=== PATIENT | female | born 1990 | race Caucasian/White ===

== ENCOUNTER 2017-07-15 06:23 | Inpatient (IN) | payer BC ==
[2017-07-15] MEDS ORDERED: METHYLERGONOVINE 0.2 MG/ML 1 ML AMP IM PRN (06:37)
[2017-07-15] MEDS ORDERED: LIDOCAINE 1% (PF) 10 MG/ML (30 ML SDV) SQ PRN (06:37)
[2017-07-15] MEDS ORDERED: OXYTOCIN 10 UNIT/ML 1 ML VIAL IM PRN (06:37)
[2017-07-15] MEDS ORDERED: TERBUTALINE 1 MG/ML VIAL SQ PRN (06:37)
[2017-07-15] MEDS ORDERED: CARBOPROST TROMETHAMINE 250 MCG/ML 1 ML AMP IM PRN (06:37)
[2017-07-15] MEDS ORDERED: LACTATED RINGERS 1,000 ML IV SCH (06:45)
[2017-07-15 06:51] LABS: Basophils % (A) 0 %; Eosinophils # (A) 0.1 k/uL (0-0.7); Eosinophils % (A) 1 %; HCT 41.8 % (34.0-46.0); HGB 13.6 gm/dL (11.4-16.0); Lymphocytes # (A) 1.9 k/uL (1.0-4.8); Lymphocytes % (A) 17 %; MCH 29.2 pg (25.0-35.0); MCHC 32.6 g/dL (31.0-37.0); MCV 89.6 fL (80.0-100.0); Mean Platelet Volume 8.6; Monocytes # (A) 0.4 k/uL (0-1.0); Monocytes % (A) 4 %; Neutrophils # (A) 8.1 k/uL (1.3-7.7); Neutrophils % (A) 76 %; Platelet Count 261 k/uL (150-450); RBC 4.67 m/uL (3.80-5.40); RDW 13.3 % (11.5-15.5); WBC 10.7 k/uL (3.8-10.6)
[2017-07-15] MEDS ORDERED: OXYTOCIN 20 UNITS/1000 ML NS 1,000 ML IV SCH (07:45)
[2017-07-15 08:21] VITALS: BMI 23.0
[2017-07-15] MEDS ORDERED: diphenhydrAMINE 50 MG/ML 1 ML VIAL IVP PRN ×2 (08:27)
[2017-07-15] MEDS ORDERED: ZOLPIDEM 5 MG TAB PO PRN (08:27)
[2017-07-15] MEDS ORDERED: diphenhydrAMINE 50 MG CAP PO PRN (08:27)
[2017-07-15] MEDS ORDERED: BENZOCAINE/MENTHOL SPRAY 1 GM/SPRAY AEROSOL TOPICAL PRN (08:27)
[2017-07-15] MEDS ORDERED: ACETAMINOPHEN TAB 325 MG TAB PO PRN (08:27)
[2017-07-15] MEDS ORDERED: SIMETHICONE 80 MG CHEWABLE PO PRN (08:27)
[2017-07-15] MEDS ORDERED: LANOLIN CREAM 5 GM TUBE TOPICAL PRN (08:27)
[2017-07-15] MEDS ORDERED: WITCH HAZEL 1 EACH MED..PAD TOPICAL PRN (08:27)
[2017-07-15] MEDS ORDERED: HYDROCORTISONE 2.5% RECTAL CREAM 30 GM TUBE RECTAL PRN (08:27)
[2017-07-15] MEDS ORDERED: diphenhydrAMINE 25 MG CAP PO PRN (08:27)
--- NOTE | 2017-07-15 08:29 | P.HPOB ---
History of Present Illness H&P Date: 07/15/17 Chief Complaint: Intrauterine at term: Active labor Patient is a 27-year-old at 39 weeks gestation arise in active labor, dilated to complete at presentation. Artificial rupture membranes was performed short time later and clear fluid is noted. She denies any problems the and she is feeling well at this time pertinent lab does include O + blood type and negative group B strep status area assessment intrauterine at term. Plan expect spontaneous vaginal delivery Past Medical History Past Medical History: No Reported History, Vascular Disorder Additional Past Medical History / Comment(s): vericose veins History of Any Multi-Drug Resistant Organisms: None Reported Additional Past Surgical History / Comment(s): wisdom teeth Past Anesthesia/Blood Transfusion Reactions: No Reported Reaction Past Psychological History: No Psychological Hx Reported Smoking Status: Never smoker Past Alcohol Use History: None Reported Past Drug Use History: None Reported - Past Family History Father Family Medical History: Diabetes Mellitus Medications and Allergies Home Medications Medication Instructions Recorded Confirmed Type Vit No.124/Iron/Folic 1 each PO DAILY 08/10/14 10/30/15 History [ Vitamin Tablet] Acetaminophen-Codeine 300-30mg 1 tab PO Q4H PRN #30 tablet 10/31/15 Rx [Tylenol #3] Ibuprofen [Motrin] 600 mg PO Q6HR PRN #30 tab 10/31/15 Rx Allergies Allergy/AdvReac Type Severity Reaction Status Date / Time No Known Allergies Allergy Verified 10/30/15 02:31 Exam Osteopathic Statement: *. No significant issues noted on an osteopathic structural exam other than those noted in the History and Physical/Consult. - Vital Signs Vital signs: Vital Signs Temp Pulse Resp BP Pulse Ox 07/15/17 06:29 97.7 F 107 H 18 97/63 100 Intake and Output 07/14/17 07/15/17 07/15/17 22:59 06:59 14:59 Other: Weight 66.678 kg - OBG Physical Exam Breast: both: normal (no masses) Abdomen: bowel sounds normal, no diffuse tenderness, no bruit present, no guarding noted, no hepatomegaly, no splenomegaly, no mass Vulva: both: normal Vagina: Varicose pains Vagina: normal moisture, no discharge Cervix: no lesion, no discharge Uterus: normal size, normal contour Adnexa: both: normal Anus/Rectum: normal perianal skin, no rectal mass, no hemorrhoids, heme negative Varicose veins across bilateral legs Results Result Diagrams: 07/15/17 06:35 Abnormal Lab Results - Last 24 Hours (Table) 07/15/17 Range/Units 06:35 WBC 10.7 H (3.8-10.6) k/uL Neutrophils # 8.1 H (1.3-7.7) k/uL
--- NOTE | 2017-07-15 08:30 | P.PROBDLV ---
Vaginal Delivery Note - . Vaginal Delivery Note: Patient progressed to complete and pushing with spontaneous vaginal delivery of a viable female over an intact perineum. Falling deliver the head anterior posterior shoulders were easily delivered with essentially no traction. Baby was delivered from right occiput anterior position. Mouth nares were then bulb suctioned and baby was placed on mother's abdomen where the umbilical cord was allowed to pulsate for 30 seconds prior to clamping and cutting. Once this was accomplished nursery personnel was present and assumed care. Placenta was then delivered intact and Pitocin was added to the IV. scores were 8 and 9 at one and 5 minutes respectively however, the weight is pending. Both mother and baby are however stable.
[2017-07-15] MEDS: IBUPROFEN 600 MG TAB PO PRN ×3 (08:39→22:55)
[2017-07-15] MEDS: SENNOSIDES-DOCUSATE SODIUM 1 EACH TAB PO SCH (22:56)
--- NOTE | 2017-07-16 06:11 | P.PNOBGVD ---
Subjective - Subjective Patient reports: Reports appetite normal, Reports voiding normally, Reports pain well controlled, Reports ambulating normally : doing well Objective - Latest Vital Signs Latest vital signs: Vital Signs Temp Pulse Resp BP Pulse Ox 07/15/17 23:30 98.2 F 64 16 96/52 07/15/17 20:00 98.1 F 70 16 111/57 07/15/17 16:00 97.8 F 58 L 16 109/67 07/15/17 11:40 98.4 F 80 16 109/64 07/15/17 10:28 98.0 F 73 16 108/67 07/15/17 09:58 85 16 101/60 07/15/17 09:28 74 16 100/63 07/15/17 09:13 66 16 105/63 07/15/17 08:58 84 16 115/59 07/15/17 08:43 84 16 115/59 07/15/17 08:28 96.3 F L 95 16 149/60 07/15/17 06:29 97.7 F 107 H 18 97/63 100 Intake and Output 07/15/17 07/15/17 07/16/17 14:59 22:59 06:59 Other: # Voids 1 1 2 - Exam Lungs: bilateral: normal Chest: Normal S1, Normal S2 Extremities: Present: normal Abdomen: Present: normal appearance, soft Uterus: Present: normal, firm - Labs Labs: Abnormal Lab Results - Last 24 Hours (Table) 07/15/17 Range/Units 06:35 WBC 10.7 H (3.8-10.6) k/uL Neutrophils # 8.1 H (1.3-7.7) k/uL Assessment and Plan Assessment: Post day #1. Patient is resting without complaints wishes to go home. Vital signs are stable and she is afebrile. Uterus is firm nontender and she is having normal lochia. My impression this is a normal course. Plan is to continue routine care and discharge home later today. (1) Normal labor and delivery Current Visit: No Status: Acute Code(s): O80 - ENCOUNTER FOR FULL-TERM UNCOMPLICATED DELIVERY SNOMED Code(s): 94789832
--- NOTE | 2017-07-16 06:16 | P.DS ---
Providers Date of admission: 07/15/17 06:29 Expected date of discharge: 07/16/17 Attending physician: Rom Saeed - Discharge Diagnosis(es) (1) Normal labor and delivery Current Visit: No Status: Acute Hospital Course: Please see dictated H&P for intimate details of this patient's admission. Brief summary this is a pleasant 27-year-old 3 para 2 female 39-3/7 weeks gestation who is admitted to labor and delivery in active labor. Please see dictated admission history and physical. Patient quickly goes on to have a vaginal delivery viable female . Please see dictated delivery note per Dr. Lerma. day #1 patient is without complaints wishes to go home. Patient's felt to be stable for discharge home follow up with me in 6 weeks Procedures: Normal spontaneous vaginal delivery Patient Condition at Discharge: Good Plan - Discharge Summary New Discharge Prescriptions: New RX: Ibuprofen [Motrin] 600 mg PO Q6HR PRN #40 tab PRN Reason: Mild Pain Or Fever >= 100.5 No Action Vit No.124/Iron/Folic [ Vitamin Tablet] 1 each PO DAILY Ibuprofen [Motrin] 600 mg PO Q6HR PRN #30 tab PRN Reason: Pain Acetaminophen-Codeine 300-30mg [Tylenol #3] 1 tab PO Q4H PRN #30 tablet PRN Reason: Pain Discharge Medication List Vit No.124/Iron/Folic [ Vitamin Tablet] 1 each PO DAILY [History] Acetaminophen-Codeine 300-30mg [Tylenol #3] 1 tab PO Q4H PRN #30 tablet [Rx] Ibuprofen [Motrin] 600 mg PO Q6HR PRN #30 tab 10/31/15 [Rx] RX: Ibuprofen [Motrin] 600 mg PO Q6HR PRN #40 tab 07/16/17 [Rx] Follow up Appointment(s)/Referral(s): Rom Saeed MD [STAFF PHYSICIAN] - 6 Weeks Patient Instructions/Handouts: Vaginal Delivery (DC) Activity/Diet/Wound Care/Special Instructions: No intercourse or anything per vagina for 6 weeks. Please call if any fever, chills, excessive vaginal bleeding, and/or abdominal pain. Discharge Disposition: HOME SELF-CARE
[2017-07-16] MEDS: IBUPROFEN 600 MG TAB PO PRN (08:01)
[2017-07-16] MEDS: SENNOSIDES-DOCUSATE SODIUM 1 EACH TAB PO SCH (08:02)
[2017-07-16 08:46] VITALS: BP 111/66; PULSE 72; RESP 20; TEMP 97
== END 2017-07-16 10:30 | disposition home or self-care (01) | DRG 775 ==
LOC: FBPOP 06:23 → 4FBP 06:29
PROVIDERS: ADMIT Obstetrics & Gynecology; ATTEND Obstetrics & Gynecology
PROC: 10907ZC Drainage of Amniotic Fluid, Therapeutic from Products of Conception, Via Natural or Artificial Opening (ICD-10-PCS; principal; 2017-07-15)
PROC: 10E0XZZ Delivery of Products of Conception, External Approach (ICD-10-PCS; principal; 2017-07-15)
DX: O80 Encounter for full-term uncomplicated delivery (principal); Z37.0 Single live birth; Z3A.39 39 weeks gestation of pregnancy
CPT/HCPCS: 85025; 88307; 99213

== ENCOUNTER 2018-05-02 14:05 | Emergency (ER) | payer OTHER, BC ==
[2018-05-02 14:34] VITALS: BP 111/68; PULSE 91; RESP 18; TEMP 98
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
== END 2018-05-02 15:22 | disposition home or self-care (01) ==
LOC: EC 14:05
DX: O9A.212 Injury, poisoning and certain other consequences of external causes complicating pregnancy, second trimester (principal); S80.11XA Contusion of right lower leg, initial encounter; O22.02 Varicose veins of lower extremity in pregnancy, second trimester; Z3A.16 16 weeks gestation of pregnancy; V49.49XA Driver injured in collision with other motor vehicles in traffic accident, initial encounter; Y92.410 Unspecified street and highway as the place of occurrence of the external cause
CPT/HCPCS: 73590; 99284; L4350

== ENCOUNTER 2018-09-19 16:00 | Emergency (ER) | payer BC, OTHER ==
[2018-09-19 17:28] LABS: Basophils # (A) 0.1 k/uL (0-0.2); Basophils % (A) 1 %; Eosinophils # (A) 0.2 k/uL (0-0.7); Eosinophils % (A) 2 %; HCT 35.7 % (34.0-46.0); HGB 11.7 gm/dL (11.4-16.0); Lymphocytes # (A) 1.9 k/uL (1.0-4.8); Lymphocytes % (A) 22 %; MCH 29.5 pg (25.0-35.0); MCHC 32.9 g/dL (31.0-37.0); MCV 89.6 fL (80.0-100.0); Monocytes # (A) 0.3 k/uL (0-1.0); Monocytes % (A) 3 %; Neutrophils # (A) 6.2 k/uL (1.3-7.7); Neutrophils % (A) 70 %; Platelet Count 225 k/uL (150-450); RBC 3.98 m/uL (3.80-5.40); RDW 14.7 % (11.5-15.5); WBC 8.8 k/uL (3.8-10.6)
[2018-09-19 17:35] LABS: ALT 11 U/L (9-52); AST 27 U/L (14-36); African American GFR (CKD) >90 (>60 ml/min/1.73 sqM); Albumin 3.5 g/dL (3.5-5.0); Alkaline Phosphatase 221 U/L (38-126); Anion Gap 8 mmol/L; Blood Urea Nitrogen 8 mg/dL (7-17); Calcium 8.8 mg/dL (8.4-10.2); Carbon Dioxide 26 mmol/L (22-30); Chloride 103 mmol/L (98-107); Glucose 107 mg/dL (74-99); Potassium 4.2 mmol/L (3.5-5.1); Sodium 137 mmol/L (137-145); Total Bilirubin 1.2 mg/dL (0.2-1.3); Total Protein 6.5 g/dL (6.3-8.2)
--- NOTE | 2018-09-19 18:03 | ED ---
SOB HPI - General Chief Complaint: Shortness of Breath Stated Complaint: SOB-36 wks preg Time Seen by Provider: 09/19/18 16:46 Source: patient Mode of arrival: ambulatory Limitations: no limitations - History of Present Illness Initial Comments: Patient is a 28-year-old female presenting to the emergency Department with complaints of shortness of breath with exertion 3 days. Patient is 36 weeks and was sent to the ER by Dr. Saeed with concerns for a PE. Patient has history of severe varicose veins in bilateral lower extremities. Patient denies having any calf tenderness at this time. Patient states just walking around her house she has been getting winded. This is patient's fourth . Patient denies any fever, chills. Patient has no other complaints at this time. has been uncomplicated so far. - Related Data Home Medications Medication Instructions Recorded Confirmed Vit No.124/Iron/Folic 1 each PO DAILY 08/10/14 10/30/15 [ Vitamin Tablet] Previous Rx's Medication Instructions Recorded Acetaminophen-Codeine 300-30mg 1 tab PO Q4H PRN #30 tablet 10/31/15 [Tylenol #3] Ibuprofen [Motrin] 600 mg PO Q6HR PRN #30 tab 10/31/15 Ibuprofen [Motrin] 600 mg PO Q6HR PRN #40 tab 07/16/17 Allergies Allergy/AdvReac Type Severity Reaction Status Date / Time No Known Allergies Allergy Verified 05/02/18 14:34 Review of Systems ROS Statement: Those systems with pertinent positive or pertinent negative responses have been documented in the HPI. ROS Other: All systems not noted in ROS Statement are negative. Past Medical History Past Medical History: Vascular Disorder Additional Past Medical History / Comment(s): vericose veins History of Any Multi-Drug Resistant Organisms: None Reported Additional Past Surgical History / Comment(s): wisdom teeth Past Anesthesia/Blood Transfusion Reactions: No Reported Reaction Past Psychological History: No Psychological Hx Reported Smoking Status: Never smoker Past Alcohol Use History: None Reported Past Drug Use History: None Reported - Past Family History Father Family Medical History: Diabetes Mellitus General Exam - General Exam Comments Initial Comments: GENERAL: Well-appearing, well-nourished and in no acute distress. Patient is 36 weeks . HEAD: Atraumatic, normocephalic. EYES: Pupils equal round and reactive to light, extraocular movements intact, sclera anicteric, conjunctiva are normal. ENT: TMs normal, nares patent, oropharynx clear without exudates. Moist mucous membranes. NECK: Normal range of motion, supple without lymphadenopathy or JVD. LUNGS: Breath sounds clear to auscultation bilaterally and equal. No wheezes rales or rhonchi. HEART: Regular rate and rhythm without murmurs, rubs or gallops. ABDOMEN: Soft, nontender, normoactive bowel sounds. No guarding, no rebound. No masses appreciated. : Deferred EXTREMITIES: Normal range of motion, no pitting or edema. No clubbing or cyanosis. Patient has severe varicose veins bilateral lower extremities. No calf tenderness. NEUROLOGICAL: Cranial nerves II through XII grossly intact. Normal speech, normal gait. PSYCH: Normal mood, normal affect. SKIN: Warm, Dry, normal turgor, no rashes or lesions noted. Limitations: no limitations Course Vital Signs 09/19/18 16:09 Temperature 97.9 F Pulse Rate 80 Respiratory 20 Rate Blood Pressure 109/66 O2 Sat by Pulse 93 L Oximetry Medical Decision Making - Medical Decision Making Patient is a 28-year-old female with complaints of shortness of breath while walking around her house x 3 days. Patient is 36 weeks . Patient was sent to ER by Dr. Lemus for rule out PE. Patient has severe bilateral lower leg varicose veins. Patient denies any calf tenderness. Patient's CBC, CMP are within normal limits. D-dimer is 1.82. Risks versus benefits were discussed with the patient regarding a CTA of the chest. Patient was okay to proceed with exam. CT angiogram tests show no evidence of PE. Patient is stable for discharge and she is in agreement with this plan. Case discussed with Dr. Valerio who is in agreement this plan of care. Patient will follow up with SALES LED[employer] CLERK as needed. Return parameters were discussed with the patient who verbalizes understanding. - Lab Data Result diagrams: 09/19/18 16:31 09/19/18 16:31 Lab Results 09/19/18 09/19/18 09/19/18 Range/Units 16:31 16:31 16:31 WBC 8.8 (3.8-10.6) k/uL RBC 3.98 (3.80-5.40) m/uL Hgb 11.7 (11.4-16.0) gm/dL Hct 35.7 (34.0-46.0) % MCV 89.6 (80.0-100.0) fL MCH 29.5 (25.0-35.0) pg MCHC 32.9 (31.0-37.0) g/dL RDW 14.7 (11.5-15.5) % Plt Count 225 (150-450) k/uL Neutrophils % 70 % Lymphocytes % 22 % Monocytes % 3 % Eosinophils % 2 % Basophils % 1 % Neutrophils # 6.2 (1.3-7.7) k/uL Lymphocytes # 1.9 (1.0-4.8) k/uL Monocytes # 0.3 (0-1.0) k/uL Eosinophils # 0.2 (0-0.7) k/uL Basophils # 0.1 (0-0.2) k/uL D-Dimer 1.82 H (<0.60) mg/L FEU Sodium 137 (137-145) mmol/L Potassium 4.2 (3.5-5.1) mmol/L Chloride 103 (98-107) mmol/L Carbon Dioxide 26 (22-30) mmol/L Anion Gap 8 mmol/L BUN 8 (7-17) mg/dL Creatinine 0.53 (0.52-1.04) mg/dL Est GFR (CKD-EPI)AfAm >90 (>60 ml/min/1.73 sqM) Est GFR (CKD-EPI)NonAf >90 (>60 ml/min/1.73 sqM) Glucose 107 H (74-99) mg/dL Calcium 8.8 (8.4-10.2) mg/dL Total Bilirubin 1.2 (0.2-1.3) mg/dL AST 27 (14-36) U/L ALT 11 (9-52) U/L Alkaline Phosphatase 221 H (38-126) U/L Total Protein 6.5 (6.3-8.2) g/dL Albumin 3.5 (3.5-5.0) g/dL - EKG Data EKG Comments: Ventricular rate 83, CT interval 152, QTC 413. Sinus rhythm with arrhythmia. No acute ST segment changes. Disposition Clinical Impression: Shortness of breath due to Disposition: HOME SELF-CARE Condition: Stable Instructions (If sedation given, give patient instructions): Shortness of Breath (ED) Additional Instructions: Please return to the Emergency Department if symptoms worsen or any other concerns. Follow-up with SALES LEDGER CLERK as needed. Is patient prescribed a controlled substance at d/c from ED?: No Referrals: None,Stated [Primary Care Provider] - 1-2 days
--- NOTE | 2018-09-19 18:25 | CT ---
EXAMINATION TYPE: CT angio chest DATE OF EXAM: 09/19/2018 6:17 PM COMPARISON: None HISTORY: SOB CT DLP: 204.8 mGycm Automated exposure control for dose reduction was used. CONTRAST: CTA scan of the thorax is performed with IV Contrast, patient injected with 80 mL of Isovue 370, pulm onary embolism protocol. There are 3-D post processed images.. FINDINGS: The lungs are clear of consolidation. There is no pleural effusion. Heart size is normal. There is no pericardial effusion. Thoracic aorta appears normal. There is no aneurysm or dissection. There is no mediastinal adenopathy. There is normal contrast opacification of the pulmonary arteries. There are no filling defects. IMPRESSION: NEGATIVE EXAM. NO EVIDENCE OF PULMONARY EMBOLISM.
[2018-09-19 19:14] VITALS: BP 99/62; PULSE 87; RESP 17; TEMP 98
== END 2018-09-19 19:07 | disposition home or self-care (01) ==
LOC: EC 16:00
DX: O99.513 Diseases of the respiratory system complicating pregnancy, third trimester (principal); R06.02 Shortness of breath; O22.03 Varicose veins of lower extremity in pregnancy, third trimester; Z3A.36 36 weeks gestation of pregnancy; Z79.899 Other long term (current) drug therapy
CPT/HCPCS: 36415; 93005; 85379; 80053; 85025; 71275; 99285; Q9967

== ENCOUNTER 2018-10-06 06:24 | Inpatient (IN) | payer BC ==
[2018-10-06] MEDS ORDERED: METHYLERGONOVINE 0.2 MG/ML 1 ML AMP IM PRN (06:50)
[2018-10-06] MEDS ORDERED: CARBOPROST TROMETHAMINE 250 MCG/ML 1 ML AMP IM PRN (06:50)
[2018-10-06] MEDS ORDERED: TERBUTALINE 1 MG/ML VIAL SQ PRN (06:50)
[2018-10-06] MEDS ORDERED: LIDOCAINE 0.5% (PF) 5 MG/ML (50 ML SDV) SQ PRN (06:50)
[2018-10-06] MEDS ORDERED: OXYTOCIN 10 UNIT/ML 1 ML VIAL IM PRN (06:50)
[2018-10-06 06:57] VITALS: BMI 22.5
[2018-10-06] MEDS: LACTATED RINGERS 1,000 ML IV SCH ×2 (07:05→07:44)
[2018-10-06 07:11] LABS: Basophils # (A) 0.1 k/uL (0-0.2); Basophils % (A) 1 %; Eosinophils # (A) 0.1 k/uL (0-0.7); Eosinophils % (A) 2 %; HCT 36.7 % (34.0-46.0); HGB 12.1 gm/dL (11.4-16.0); Lymphocytes # (A) 2.1 k/uL (1.0-4.8); Lymphocytes % (A) 25 %; MCH 28.8 pg (25.0-35.0); MCV 87.4 fL (80.0-100.0); Mean Platelet Volume 9.3; Monocytes # (A) 0.5 k/uL (0-1.0); Monocytes % (A) 6 %; Neutrophils # (A) 5.5 k/uL (1.3-7.7); Neutrophils % (A) 64 %; Platelet Count 227 k/uL (150-450); RBC 4.21 m/uL (3.80-5.40); RDW 15.5 % (11.5-15.5); WBC 8.5 k/uL (3.8-10.6)
[2018-10-06] MEDS ORDERED: SODIUM CHLORIDE 0.9% 100 ML BAG ONE (07:28)
[2018-10-06] MEDS ORDERED: fentaNYL (PF) 50 MCG/ML 5 ML AMP ONE (07:28)
[2018-10-06] MEDS ORDERED: ROPIVACAINE 5MG/ML 20ML VIAL ONE (07:28)
[2018-10-06] MEDS ORDERED: OXYTOCIN 30 UNITS/500 ML NS 30 UNIT in SALINE 1 500ML.BAG IV SCH (08:00)
--- NOTE | 2018-10-06 08:14 | P.HPOB ---
History of Present Illness H&P Date: 10/06/18 Chief Complaint: Contractions This is a 28-year-old female 4 para 3 with an estimated date of confinement of 10/13/2018, estimated gestational age of 39 and one sevenths weeks, who presents to labor and delivery with complaints of contractions that began approximately 2 AM this morning. She denied any rupture of membranes. care has been with Dr. Saeed and has been uncomplicated other than severe varicose veins. labs: Hepatitis B surface antigen-negative RPR-nonreactive Rubella-immune Blood type-O+ Antibody screen-negative HIV-nonreactive Hemoglobin-13.8 Toxoplasma screen-negative Random glucose-67 GC/comment/Trichomonas-negative Obstetrical ultrasound-normal anatomy One hour Glucola-101 Group B streptococcus-negative Obstetrical history: . History of 3 vaginal deliveries at term with no complications. Review of Systems Constitutional: Denies chills, Denies fever Eyes: denies blurred vision, denies pain Ears, nose, mouth and throat: Denies headache, Denies sore throat Cardiovascular: Denies chest pain, Denies shortness of breath Respiratory: Denies cough Gastrointestinal: Reports abdominal pain (Contractions) Genitourinary: Reports pelvic pain, Reports Musculoskeletal: Reports low back pain Neurological: Denies numbness, Denies weakness Psychiatric: Denies anxiety, Denies depression Past Medical History Past Medical History: Vascular Disorder Additional Past Medical History / Comment(s): vericose veins History of Any Multi-Drug Resistant Organisms: None Reported Additional Past Surgical History / Comment(s): wisdom teeth Past Anesthesia/Blood Transfusion Reactions: No Reported Reaction Past Psychological History: No Psychological Hx Reported Smoking Status: Never smoker Past Alcohol Use History: None Reported Past Drug Use History: None Reported - Past Family History Father Family Medical History: Diabetes Mellitus Medications and Allergies Home Medications Medication Instructions Recorded Confirmed Type Vit No.124/Iron/Folic 1 each PO DAILY 08/10/14 10/06/18 History [ Vitamin Tablet] Allergies Allergy/AdvReac Type Severity Reaction Status Date / Time No Known Allergies Allergy Verified 10/06/18 06:29 Exam Osteopathic Statement: *. No significant issues noted on an osteopathic structural exam other than those noted in the History and Physical/Consult. Vital Signs Temp Pulse Resp BP 10/06/18 06:31 97 F L 96 16 110/63 Intake and Output 10/05/18 10/06/18 10/06/18 22:59 06:59 14:59 Other: Weight 65.317 kg Gen.: Well-developed well-nourished female in no acute distress HEENT: Within normal limits Heart: Regular rate and rhythm Lungs: Clear to auscultation bilaterally Abdomen: Cervix: 5 cm/90%/-2 station heart tones: Category 1 Contractions: Irregular approximately 3-7 minutes Extremities: Severe varicosities throughout her legs and vulvar area Results Result Diagrams: 10/06/18 06:49 Assessment and Plan (1) 39 weeks gestation of Current Visit: Yes Status: Acute Code(s): Z3A.39 - 39 WEEKS GESTATION OF SNOMED Code(s): 50231524 Plan: Admission for active labor. Epidural anesthesia. Oxytocin augmentation of labor and expectant management.
[2018-10-06] MEDS ORDERED: diphenhydrAMINE 25 MG CAP PO PRN (10:33)
[2018-10-06] MEDS ORDERED: ZOLPIDEM 5 MG TAB PO PRN (10:33)
[2018-10-06] MEDS ORDERED: LANOLIN CREAM 5 GM TUBE TOPICAL PRN (10:33)
[2018-10-06] MEDS ORDERED: SIMETHICONE 80 MG CHEWABLE PO PRN (10:33)
[2018-10-06] MEDS ORDERED: WITCH HAZEL 1 EACH MED..PAD TOPICAL PRN (10:33)
[2018-10-06] MEDS ORDERED: BENZOCAINE/MENTHOL SPRAY 1 GM/SPRAY AEROSOL TOPICAL PRN (10:33)
[2018-10-06] MEDS ORDERED: diphenhydrAMINE 50 MG CAP PO PRN (10:33)
[2018-10-06] MEDS ORDERED: OXYTOCIN 20 UNITS/1000 ML NS 1,000 ML IV SCH (10:33)
[2018-10-06] MEDS ORDERED: HYDROCORTISONE 2.5% RECTAL CREAM 30 GM TUBE RECTAL PRN (10:33)
[2018-10-06] MEDS ORDERED: ACETAMINOPHEN TAB 325 MG TAB PO PRN (10:33)
[2018-10-06] MEDS ORDERED: diphenhydrAMINE 50 MG/ML 1 ML VIAL IVP PRN ×2 (10:33)
--- NOTE | 2018-10-06 10:58 | P.PROBDLV ---
Vaginal Delivery Note - . Vaginal Delivery Note: The patient progressed to complete dilation after oxytocin augmentation of labor and epidural anesthesia. She did undergo artificial rupture membranes with clear fluid noted. Once reaching complete dilation, she began pushing. 's head came to a crown. With one further push, the infant's head delivered across the perineum followed by the anterior shoulder. Nose and mouth were bulb suctioned after delivery of the . was placed on mother's abdomen and cord was clamped and cut. A viable female was noted with scores of 9 at 1 minute and 10 at 5 minutes and weight was 6 lbs. 12 oz. After waiting almost 20 minutes without any release of the placenta, a gloved hand was placed into the intrauterine cavity and the placenta was manually removed. It was noted to be fairly adherent. After it was removed it was inspected and appeared to be intact. A gloved hand was placed back inside and no further placental tissue was obtained. Oxytocin was opened up and uterus did contract fairly well. Uterus firmed up and bleeding did slow. Inspection of the perineum revealed no perineal lacerations. Estimated blood loss is approximately 200 mL's. Both mother and are in stable condition. Placenta will be sent due to adherent placenta. Cord blood was also obtained secondary to O+ blood type.
[2018-10-06] MEDS: IBUPROFEN 600 MG TAB PO PRN ×2 (11:58→17:46)
--- NOTE | 2018-10-06 18:08 | P.PN ---
Progress Note - Text Progress Note Date: 10/06/18 Patient complains of a headache that is positional in nature. Patient apparently did have possible dural puncture at the time of her epidural. Asked anesthesia to examine the patient and evaluate her for possible blood patch.
[2018-10-07] MEDS: SENNOSIDES-DOCUSATE SODIUM 1 EACH TAB PO SCH ×2 (00:57→07:47)
--- NOTE | 2018-10-07 05:57 | P.PNOBGVD ---
Subjective - Subjective Patient reports: Reports appetite normal, Reports voiding normally, Reports pain well controlled, Reports ambulating normally : doing well Objective - Latest Vital Signs Latest vital signs: Vital Signs Temp Pulse Resp BP 10/07/18 00:00 98 F 61 15 105/53 10/06/18 20:00 98 F 57 L 15 99/55 10/06/18 15:58 97.7 F 55 L 16 103/65 10/06/18 12:34 98.2 F 71 16 105/57 10/06/18 12:04 86 16 105/62 10/06/18 11:34 72 16 100/59 10/06/18 11:19 64 16 102/58 10/06/18 11:04 67 16 104/55 10/06/18 10:49 94 16 96/54 10/06/18 10:34 86 16 106/58 10/06/18 06:31 97 F L 96 16 110/63 Intake and Output 10/06/18 10/06/18 10/07/18 14:59 22:59 06:59 Intake Total 499.5 Balance 499.5 Intake: Intake, IV Titration 499.5 Amount Oxytocin 20 Units/1000 ml 499.5 Ns 1,000 ml @ Per Protocol IV .Q0M [facility] Rx#: [id number] Other: # Voids 1 2 1 - Exam Lungs: bilateral: normal Chest: Normal S1, Normal S2 Extremities: Present: normal Abdomen: Present: normal appearance, soft Uterus: Present: normal, firm Assessment and Plan Assessment: day #1. Patient is resting without complaints and wishes to go home. Patient reports normal bleeding and we did discuss her retained placenta and signs and symptoms of bleeding problems. Patient did have a post-epidural headache and had a blood patch placed yesterday as well and she seems to be doing better from this and would like to go home. Vital signs are stable and she is afebrile. She is having normal lochia. Her varicosities are much better. Plan today is to continue routine care discharge home later today. (1) Normal labor and delivery Current Visit: No Status: Acute Code(s): O80 - ENCOUNTER FOR FULL-TERM UNCOMPLICATED DELIVERY SNOMED Code(s): 50168936
--- NOTE | 2018-10-07 06:00 | P.DS ---
Providers Date of admission: 10/06/18 06:33 Expected date of discharge: 10/07/18 Attending physician: Rom Saeed Primary care physician: Stated None - Discharge Diagnosis(es) (1) Normal labor and delivery Current Visit: No Status: Acute Hospital Course: Please see dictated H&P for intimate details of this patient's admission. Brief summary this is a pleasant 28-year-old 4 para 3 female 39 and one sevenths weeks gestation admitted to labor and delivery in active labor. Patient was on have a vaginal delivery viable female . Please see dictated delivery note per Dr. Gutierrez. Patient's delivery was complicated by retained placenta that required manual extraction. Post delivery patient's bleeding has been normal. Patient did develop a headache after her epidural was felt to be a "wet tap". Anesthesia was consult and a blood patch was placed yesterday. Patient appeared to have resolution of most of her symptoms after this and desired to go home on day #1. Patient's follow up with me in 6 weeks. She given strict instructions to call should any bleeding problems or other symptomatology. Procedures: Normal vaginal delivery, manual extraction of placenta, blood patch Patient Condition at Discharge: Good Plan - Discharge Summary New Discharge Prescriptions: New Ibuprofen [Motrin] 600 mg PO Q6HR PRN #40 tab PRN Reason: Mild Pain Or Fever >= 100.5 No Action Vit No.124/Iron/Folic [ Vitamin Tablet] 1 each PO DAILY Discharge Medication List Vit No.124/Iron/Folic [ Vitamin Tablet] 1 each PO DAILY 08/10/14 [History] Ibuprofen [Motrin] 600 mg PO Q6HR PRN #40 tab 10/07/18 [Rx] Follow up Appointment(s)/Referral(s): Rom Saeed MD [STAFF PHYSICIAN] - 6 Weeks Patient Instructions/Handouts: Vaginal Delivery (DC) Activity/Diet/Wound Care/Special Instructions: No intercourse or anything per vagina for 6 weeks. Please call if any fever, chills, excessive vaginal bleeding, and/or abdominal pain. Discharge Disposition: HOME SELF-CARE
--- NOTE | 2018-10-07 06:07 | P.ANPRN ---
Procedure Note - Anesthesia - Nerve Block Performed Other (see comment) Single Time Out Performed: Yes (EPIDURAL BLOOD PATCH) Date of Procedure: 10/06/18 Procedure Start Time: 18:58 Procedure Stop Time: 19:18 Location of Patient Procedure: OB Sedation Type: Awake Preparation: Sterile Prep Position: Sitting Catheter: None Needle Types: Benton Needle Gauge: 20 Injectate: Other (see comment) (Autologous blood, 12 cc in epidural space.)
[2018-10-07] MEDS: IBUPROFEN 600 MG TAB PO PRN (06:38)
[2018-10-07 07:56] LABS: Basophils # (A) 0.1 k/uL (0-0.2); Basophils % (A) 1 %; Eosinophils # (A) 0.2 k/uL (0-0.7); Eosinophils % (A) 2 %; HCT 37.8 % (34.0-46.0); HGB 12.2 gm/dL (11.4-16.0); Hypochromasia Slight; Lymphocytes # (A) 2.5 k/uL (1.0-4.8); Lymphocytes % (A) 26 %; MCHC 32.3 g/dL (31.0-37.0); MCV 89.7 fL (80.0-100.0); Mean Platelet Volume 8.9; Monocytes # (A) 0.3 k/uL (0-1.0); Monocytes % (A) 3 %; Neutrophils # (A) 6.2 k/uL (1.3-7.7); Neutrophils % (A) 65 %; Platelet Count 220 k/uL (150-450); RBC 4.21 m/uL (3.80-5.40); RDW 14.6 % (11.5-15.5); WBC 9.6 k/uL (3.8-10.6)
[2018-10-07 08:10] VITALS: BP 98/58; PULSE 58; RESP 14; TEMP 97.7
== END 2018-10-07 11:15 | disposition home or self-care (01) | DRG 807 ==
LOC: FBPOP 06:24 → 4FBP 06:33
PROVIDERS: ADMIT Obstetrics & Gynecology; ATTEND Obstetrics & Gynecology
PROC: 10E0XZZ Delivery of Products of Conception, External Approach (ICD-10-PCS; principal; 2018-10-06)
PROC: 00HU33Z Insertion of Infusion Device into Spinal Canal, Percutaneous Approach (ICD-10-PCS; 2018-10-06)
PROC: 3E0R3BZ Introduction of Anesthetic Agent into Spinal Canal, Percutaneous Approach (ICD-10-PCS; 2018-10-06)
PROC: 3E0R3GC Introduction of Other Therapeutic Substance into Spinal Canal, Percutaneous Approach (ICD-10-PCS; 2018-10-06)
DX: O73.0 Retained placenta without hemorrhage (principal); Z37.0 Single live birth; O89.4 Spinal and epidural anesthesia-induced headache during the puerperium; Z3A.39 39 weeks gestation of pregnancy; Z83.3 Family history of diabetes mellitus
CPT/HCPCS: 59025; 85025; 86850; 86900; 86901; 99213

== ENCOUNTER 2018-10-08 12:02 | Emergency (ER) | payer BC ==
[2018-10-08 12:20] VITALS: RESP 16
[2018-10-08] MEDS ORDERED: KETOROLAC 30 MG/ML 1 ML VIAL IVP STA (12:50)
[2018-10-08] MEDS ORDERED: ACETAMINOPHEN TAB 500 MG TAB PO STA (12:51)
[2018-10-08] MEDS ORDERED: CAFFEINE-SODIUM BENZOATE 1,000 MG in SODIUM CHLORIDE 0.9% 1,000 ML IVPB ONE (13:00)
--- NOTE | 2018-10-08 13:22 | ED ---
General Adult HPI - General Chief complaint: Headache Stated complaint: s/p epidural w/bad headaches Time Seen by Provider: 10/08/18 12:23 Source: patient Mode of arrival: wheelchair Limitations: no limitations - History of Present Illness Initial comments: Patient is a 28-year-old female presenting to the emergency department with a chief complaint of a headache. Patient reports giving vaginal 2 days ago with without locations using an epidural. Patient reports she developed a headache that was exacerbated when standing straight and alleviated when laying down about 2 hours after giving . Patient reports she was given pain medication, caffeine and IV fluids. Patient reports minimal purulent. Patient reports she received a blood patch that resolved the pain. Patient reports she was symptom-free until she woke up this morning with a similar type symptoms. Patient reports nausea and a headache that is exacerbated when standing and alleviated when laying down. Patient reports the headache is throbbing in nature and rates it an 8. Patient reports taking ibuprofen 600 with minimal improvement. Patient denies vomiting, chest pain, chest tightness, shortness of breath, dizziness, lightheadedness or blurry vision. - Related Data Home Medications Medication Instructions Recorded Confirmed Vit No.124/Iron/Folic 1 tab PO DAILY 08/10/14 10/08/18 [ Vitamin Tablet] Previous Rx's Medication Instructions Recorded Ibuprofen [Motrin] 600 mg PO Q6HR PRN #40 tab 10/07/18 Allergies Allergy/AdvReac Type Severity Reaction Status Date / Time No Known Allergies Allergy Verified 10/08/18 12:50 Review of Systems ROS Statement: Those systems with pertinent positive or pertinent negative responses have been documented in the HPI. ROS Other: All systems not noted in ROS Statement are negative. Past Medical History Past Medical History: Vascular Disorder Additional Past Medical History / Comment(s): vericose veins History of Any Multi-Drug Resistant Organisms: None Reported Additional Past Surgical History / Comment(s): wisdom teeth Past Anesthesia/Blood Transfusion Reactions: No Reported Reaction Past Psychological History: No Psychological Hx Reported Smoking Status: Never smoker Past Alcohol Use History: None Reported Past Drug Use History: None Reported - Past Family History Father Family Medical History: Diabetes Mellitus General Exam Limitations: no limitations General appearance: alert, in no apparent distress Head exam: Present: atraumatic, normocephalic, normal inspection Eye exam: Present: normal appearance, PERRL, EOMI. Absent: conjunctival injection Pupils: Present: normal accommodation ENT exam: Present: normal exam, normal oropharynx, mucous membranes moist, TM's normal bilaterally, normal external ear exam Neck exam: Present: normal inspection, full ROM. Absent: tenderness Respiratory exam: Present: normal lung sounds bilaterally Cardiovascular Exam: Present: regular rate, normal rhythm, normal heart sounds GI/Abdominal exam: Present: soft. Absent: tenderness, guarding Extremities exam: Present: normal inspection, full ROM Back exam: Present: normal inspection (Epidural site does not appear infected), full ROM. Absent: CVA tenderness (R), CVA tenderness (L) Neurological exam: Present: alert, oriented X3 Psychiatric exam: Present: normal affect, normal mood Skin exam: Present: warm, intact, normal color Course Vital Signs 10/08/18 10/08/18 10/08/18 12:14 13:54 15:39 Temperature 97.5 F L 98.0 F 97.9 F Pulse Rate 59 L 53 L 58 L Respiratory 16 16 16 Rate Blood Pressure 113/70 103/72 114/73 O2 Sat by Pulse 100 100 99 Oximetry Medical Decision Making - Medical Decision Making Patient is a 28-year-old male presenting to emergency Department with a chief complaint of a headache. Patient had an epidural 2 days ago and has developed a spinal headache at the time. Patient was given fluids pain management and caffeine with minimal improvement. The same day she had a blood patch placed. Patient reports no symptoms until she woke up this morning and developed a similar headache. Based on history and physical examination the patient appears to have a spinal headache that is exacerbated when standing and alleviated when laying down. Patient was given Zofran for nausea. Patient was a given a liter fluid, caffeine, the epidural site does not look infected. Toradol and Tylenol. On reevaluation patient reports feeling better and she is able to be in standing position without any headaches. Patient reports that she is happy and ready go home. Strict return parameters were thoroughly discussed the patient was understanding and agreeable. Case discussed with physician. Disposition Clinical Impression: Spinal headache Disposition: HOME SELF-CARE Condition: Stable Instructions (If sedation given, give patient instructions): Acute Headache (E D) Additional Instructions: Please follow with primary care. Please return to emergency department if symptoms worsen. Alternate between Tylenol for pain control. Is patient prescribed a controlled substance at d/c from ED?: No Referrals: None,Stated [Primary Care Provider] - 1-2 days Time of Disposition: 15:19
[2018-10-08] MEDS ORDERED: ONDANSETRON 4 MG/2 ML VIAL IVP STA (13:53)
[2018-10-08 15:42] VITALS: BP 114/73; PULSE 58; TEMP 97.9
== END 2018-10-08 15:30 | disposition home or self-care (01) ==
LOC: EC 12:02
DX: G97.1 Other reaction to spinal and lumbar puncture (principal); R51 Headache; R11.0 Nausea
CPT/HCPCS: 99283; 96374; 96375; J1885

== ENCOUNTER 2018-10-09 10:31 | Emergency (ER) | payer BC ==
[2018-10-09 10:36] VITALS: TEMP 98.3
[2018-10-09] MEDS ORDERED: KETOROLAC 30 MG/ML 1 ML VIAL IVP STA (11:14)
[2018-10-09] MEDS ORDERED: MORPHINE SULFATE 4 MG/ML SYRINGE IV STA (11:14)
[2018-10-09] MEDS ORDERED: diphenhydrAMINE 50 MG/ML 1 ML VIAL IVP STA (11:14)
[2018-10-09] MEDS ORDERED: SODIUM CHLORIDE 0.9% 1,000 ML IV STA (11:14)
[2018-10-09] MEDS ORDERED: METOCLOPRAMIDE 5 MG/ML 2 ML VIAL IVP STA (11:14)
[2018-10-09] MEDS ORDERED: CAFFEINE-SODIUM BENZOATE 1,000 MG in SODIUM CHLORIDE 0.9% 1,000 ML IVPB ONE (11:45)
--- NOTE | 2018-10-09 11:59 | ED ---
Headache HPI - General Chief Complaint: Headache Stated Complaint: Headache Time Seen by Provider: 10/09/18 11:02 Source: RN notes reviewed, old records reviewed Mode of arrival: ambulatory - History of Present Illness Initial Comments: This is a 28-year-old female the ER for evaluation. She is presented today for evaluation regards to headache. Patient is recent epidural, spinal headache. In the past patient is had blood patch which apparently did not take if she developed a headache the next day recurrent spinal headache which is positional worse when she sits worse when she stands headache is frontal, throbbing and pressure and goes down her back. Mildly nauseous no active vomiting. Patient has no other significant complaints occasionally admits to some tingling of her hands MD Complaint: headache (Previously diagnosed epidural spinal headache) -: days(s) (3) Onset Description: sudden, other (After LP, worse when she sits up) Location: frontal, neck Severity: moderate Severity scale (1-10): 5 Quality: aching, throbbing Consistency: constant Improves With: nothing Worsens With: none - Related Data Home Medications Medication Instructions Recorded Confirmed Vit No.124/Iron/Folic 1 tab PO DAILY 08/10/14 10/09/18 [ Vitamin Tablet] Previous Rx's Medication Instructions Recorded Ibuprofen [Motrin] 600 mg PO Q6HR PRN #40 tab 10/07/18 Allergies Allergy/AdvReac Type Severity Reaction Status Date / Time No Known Allergies Allergy Verified 10/09/18 10:44 Review of Systems ROS Statement: Those systems with pertinent positive or pertinent negative responses have been documented in the HPI. ROS Other: All systems not noted in ROS Statement are negative. Past Medical History Past Medical History: Vascular Disorder Additional Past Medical History / Comment(s): vericose veins History of Any Multi-Drug Resistant Organisms: None Reported Additional Past Surgical History / Comment(s): wisdom teeth Past Anesthesia/Blood Transfusion Reactions: No Reported Reaction Past Psychological History: No Psychological Hx Reported Smoking Status: Never smoker Past Alcohol Use History: None Reported Past Drug Use History: None Reported - Past Family History Father Family Medical History: Diabetes Mellitus General Exam General appearance: alert, in no apparent distress Head exam: Present: atraumatic, normocephalic, normal inspection Eye exam: Present: normal appearance, PERRL, EOMI. Absent: scleral icterus, conjunctival injection, periorbital swelling ENT exam: Present: normal exam, mucous membranes moist Neck exam: Present: normal inspection. Absent: tenderness, meningismus, lymphadenopathy Respiratory exam: Present: normal lung sounds bilaterally. Absent: respiratory distress, wheezes, rales, rhonchi, stridor Cardiovascular Exam: Present: regular rate, normal rhythm, normal heart sounds. Absent: systolic murmur, diastolic murmur, rubs, gallop, clicks GI/Abdominal exam: Present: soft, normal bowel sounds. Absent: distended, tenderness, guarding, rebound, rigid Extremities exam: Present: normal inspection, full ROM, normal capillary refill. Absent: tenderness, pedal edema, joint swelling, calf tenderness Back exam: Present: normal inspection Neurological exam: Present: alert, oriented X3, CN II-XII intact Psychiatric exam: Present: normal affect, normal mood Skin exam: Present: warm, dry, intact, normal color. Absent: rash Course Vital Signs 10/09/18 10:32 Temperature 98.3 F Pulse Rate 68 Respiratory 18 Rate Blood Pressure 116/76 O2 Sat by Pulse 100 Oximetry - Reevaluation(s) Reevaluation #1: 10/09/18 11:59 Medical record is reviewed including prior procedures, prior ER visit Reevaluation #2: 10/09/18 14:05 Anesthesiology was paged, did evaluate patient in the ER and perform blood patch. Medical Decision Making - Medical Decision Making 28 female the ER with fall spinal epidural headache. Patient has one blood patch after headache and one blood pressure today medications in between. Headache is improved and patient can be discharged under no acute distress - Radiology Data Radiology results: report reviewed (CT brain is negative for acute disease), image reviewed Disposition Clinical Impression: Spinal headache Disposition: HOME SELF-CARE Condition: Good Instructions (If sedation given, give patient instructions): Acute Headache (ED) Is patient prescribed a controlled substance at d/c from ED?: No Referrals: None,Stated [Primary Care Provider] - 1-2 days
--- NOTE | 2018-10-09 12:34 | CT ---
EXAMINATION TYPE: CT brain wo con DATE OF EXAM: 10/09/2018 COMPARISON: None HISTORY: 28-year-old female Headache TECHNIQUE: Examination was done in axial plane without intravenous contrast. Coronal and sagittal r econstructions performed. CT DLP: 1099.4 mGycm Automated exposure control for dose reduction was used. FINDINGS: There is no evidence of acute intracranial hemorrhage, acute ischemic changes, mass, mass-effect, or extra-axial fluid collection. There is no effacement of cerebral sulci or basal subarachnoid cister ns. There is no hydrocephalus. There is no midline shift. Lopez-white matter distinction is preserv ed. There is fullness in the region of the pituitary gland with craniocaudal dimension of 1 cm. Paranasal sinuses and mastoid air cells are pneumatized. Orbits and globes are intact. IMPRESSION: Fullness in the region of the pituitary gland measuring 1 cm craniocaudal. Contrast-enhanced pituitar y/brain MRI can provide more detailed assessment of this region and exclude an underlying lesion. Oth erwise, no acute intracranial abnormality seen.
--- NOTE | 2018-10-09 14:06 | P.PN ---
Progress Note - Text 1330. Patient is a pleasant 28-year-old female who just delivered a healthy on 10/06/2018. Patient had an epidural catheter placed for labor pain relief, and on the evening of that day complained of a moderately severe postural headache. Dr. Paulino did a in epidural blood patch that evening that serve the patient well until 10/08/2018 when it returned. There are no symptoms of or signs of infection or neurological compromise and the patient is requesting a repeat epidural blood patch. Incidentally she is breast-feeding and was instructed to maintain good hydration and in other maneuvers that will decrease the pressure gradient across the dural rent. Procedure: Epidural blood patch. With the patient seated over the edge of her stretcher, her feet on a chair, the lumbar area of her back was inspected the original epidural injection site identified and the area was sterilely prepped and draped. The epidural space was entered using a loss of resistant's technique and a 20-gauge Touhy needle through a small skin wheal raised over the original interspace. At this point 20cc of autologous blood was drawn using sterile technique and injected through the Touhy needle with partial resolution of the patient's headache. The patient tolerated the procedure without difficulty.
[2018-10-09 14:41] VITALS: BP 101/62; PULSE 53; RESP 16
[2018-10-10] MEDS ORDERED: CAFFEINE CITRATE 500 MG in DEXTROSE 5% IN WATER 50 ML IV SCH ×2 (09:00)
== END 2018-10-09 14:39 | disposition home or self-care (01) ==
LOC: EC 10:31
DX: O89.4 Spinal and epidural anesthesia-induced headache during the puerperium (principal); O99.89 Other specified diseases and conditions complicating pregnancy, childbirth and the puerperium; R11.0 Nausea; Z53.29 Procedure and treatment not carried out because of patient's decision for other reasons
CPT/HCPCS: 99284; 62273; 96365; 96367; 70450; J2930

== ENCOUNTER 2020-11-08 05:40 | Inpatient (IN) | payer BC ==
--- NOTE | 2020-11-07 12:39 | P.HPOB ---
History of Present Illness H&P Date: 11/07/20 Chief Complaint: Requested induction of labor This patient is a pleasant 30 yr female EDC 11/13/2020 estimated gestational age 39 2/7 weeks who presents for elective induction of labor. has been uncomplicated, however patient has a history of severe venous insufficiency and varicose veins and has been on daily low dose aspirin. Review of Systems Menstruation: Reports amenorrhea Past Medical History Past Medical History: Vascular Disorder Additional Past Medical History / Comment(s): vericose veins History of Any Multi-Drug Resistant Organisms: None Reported Additional Past Surgical History / Comment(s): wisdom teeth Past Anesthesia/Blood Transfusion Reactions: No Reported Reaction Past Psychological History: No Psychological Hx Reported Past Alcohol Use History: None Reported Past Drug Use History: None Reported - Past Family History Father Family Medical History: Diabetes Mellitus Medications and Allergies Home Medications Medication Instructions Recorded Confirmed Type Vit No.124/Iron/Folic 1 tab PO DAILY 08/10/14 10/09/18 History [ Vitamin Tablet] Ibuprofen [Motrin] 600 mg PO Q6HR PRN #40 tab 10/07/18 10/09/18 Rx Allergies Allergy/AdvReac Type Severity Reaction Status Date / Time No Known Allergies Allergy Verified 10/09/18 10:44 Exam - OBG Physical Exam Abdomen: bowel sounds normal, no diffuse tenderness, no bruit present, no guarding noted, no hepatomegaly, no splenomegaly, no mass Vagina: normal moisture, no discharge Cervix: no lesion (Cervix is 2cm/th/soft), no discharge Results labs: O positive, Rubella Immune, RPR-HepB neg, Glucola 108, GBS was positive. Growth / anatomy ultrasounds have been normal. Assessment and Plan Assessment: This is a pleasant 30 yr female estimated gestation age 39 and 2/7 weeks who presents for elective induction of labor. Positive GBS culture. Plan is antibiotic prophylaxis and induction of labor. Anticipate . (1) Elective induction of labor planned Status: Acute Code(s): YAO1151 - SNOMED Code(s): 911142110 (2) Varicose vein of leg Status: Acute Code(s): I83.90 - ASYMPTOMATIC VARICOSE VEINS OF UNSPECIFIED LOWER EXTREMITY SNOMED Code(s): 60146312 (3) 39 weeks gestation of Status: Acute Code(s): Z3A.39 - 39 WEEKS GESTATION OF SNOMED Code(s): 32978178 (4) Positive GBS test Status: Acute Code(s): B95.1 - STREPTOCOCCUS, GROUP B, CAUSING DISEASES [facility] SNOMED Code(s): 387737544
[2020-11-08] MEDS ORDERED: TERBUTALINE 1 MG/ML VIAL SQ PRN (05:50)
[2020-11-08] MEDS ORDERED: CARBOPROST TROMETHAMINE 250 MCG/ML 1 ML AMP IM PRN (05:50)
[2020-11-08] MEDS ORDERED: AMPICILLIN 2,000 MG in SODIUM CHLORIDE 0.9% 100 ML IVPB STA (05:50)
[2020-11-08] MEDS ORDERED: OXYTOCIN 10 UNIT/ML 1 ML VIAL IM PRN (05:50)
[2020-11-08] MEDS ORDERED: METHYLERGONOVINE 0.2 MG/ML 1 ML AMP IM PRN (05:50)
[2020-11-08] MEDS ORDERED: OXYTOCIN 30 UNITS/500 ML NS 30 UNIT in SALINE 1 500ML.BAG IV SCH ×2 (05:50→14:06)
[2020-11-08] MEDS ORDERED: LIDOCAINE 0.5% (PF) 5 MG/ML (50 ML SDV) SQ PRN (05:50)
[2020-11-08] MEDS: LACTATED RINGERS 1,000 ML IV SCH ×2 (06:16→11:00)
[2020-11-08 06:28] LABS: Basophils # (A) 0.1 k/uL (0-0.2); Basophils % (A) 1 %; Eosinophils # (A) 0.1 k/uL (0-0.7); Eosinophils % (A) 2 %; HCT 33.3 % (34.0-46.0); HGB 10.6 gm/dL (11.4-16.0); Hypochromasia Slight; Lymphocytes # (A) 2.2 k/uL (1.0-4.8); Lymphocytes % (A) 33 %; MCHC 31.9 g/dL (31.0-37.0); MCV 84.7 fL (80.0-100.0); Mean Platelet Volume 9.9; Monocytes # (A) 0.3 k/uL (0-1.0); Monocytes % (A) 5 %; Neutrophils # (A) 3.7 k/uL (1.3-7.7); Neutrophils % (A) 55 %; Platelet Count 192 k/uL (150-450); RBC 3.93 m/uL (3.80-5.40); RDW 15.3 % (11.5-15.5); WBC 6.6 k/uL (3.8-10.6)
[2020-11-08] MEDS: AMPICILLIN 1,000 MG in SODIUM CHLORIDE 0.9% 50 ML IVPB SCH ×2 (10:06→19:38)
[2020-11-08] MEDS ORDERED: fentaNYL (PF) 50 MCG/ML 5 ML AMP ONE (10:17)
[2020-11-08] MEDS ORDERED: ROPIVACAINE 5MG/ML 20ML VIAL ONE (10:17)
[2020-11-08] MEDS ORDERED: SODIUM CHLORIDE 0.9% 100 ML BAG ONE (10:17)
[2020-11-08] MEDS ORDERED: LANOLIN CREAM 5 GM TUBE TOPICAL PRN (14:06)
[2020-11-08] MEDS ORDERED: HYDROCORTISONE 2.5% RECTAL CREAM 30 GM TUBE RECTAL PRN (14:06)
[2020-11-08] MEDS ORDERED: SIMETHICONE 80 MG CHEWABLE PO PRN (14:06)
[2020-11-08] MEDS ORDERED: IBUPROFEN 600 MG TAB PO PRN (14:06)
[2020-11-08] MEDS ORDERED: bisacodyL 10 MG SUPP RECTAL PRN (14:06)
[2020-11-08] MEDS ORDERED: ACETAMINOPHEN TAB 325 MG TAB PO PRN (14:06)
[2020-11-08] MEDS ORDERED: diphenhydrAMINE 25 MG CAP PO PRN (14:06)
[2020-11-08] MEDS ORDERED: diphenhydrAMINE 50 MG/ML 1 ML VIAL IVP PRN (14:06)
[2020-11-08] MEDS ORDERED: ZOLPIDEM 5 MG TAB PO PRN (14:06)
[2020-11-08] MEDS ORDERED: BENZOCAINE/MENTHOL SPRAY 1 GM/SPRAY AEROSOL TOPICAL PRN (14:06)
[2020-11-08] MEDS ORDERED: SENNOSIDES-DOCUSATE SODIUM 1 EACH TAB PO PRN (14:06)
--- NOTE | 2020-11-08 18:00 | P.PROBDLV ---
Vaginal Delivery Note - . Vaginal Delivery Note: Normal vaginal delivery viable male infant Apgars 9 and 9 delivery time is 1345 hrs. Please see dictated H&P for intimate details of this patient's admission. Brief summary this is a pleasant 30-year-old 5 para 4 female estimated gestational age 39-2/7 weeks gestation who is admitted to labor and delivery for requested induction of labor. On admission patient is 2 cm dilated has artificial rupture membranes for clear fluid. Labor progresses she does get an epidural for pain control with good relief. Patient is also given antibiotics for positive group B strep culture. Labor progresses normally and she does get to complete. She pushes the head to the perineum with approximately 3 or 4 pushes pushes the head to the posterior perineum. She then has controlled delivery of infant's head over the intact perineum. Mouth and nares are bulb suctioned there is no evidence of a nuchal cord. With gentle downward traction we have delivery the anterior and posterior shoulder and rest this infant's body. is straight occiput anterior presentation. This is a vigorous viable male Apgars 9 and 9 delivery time was 1345 hrs. After delivery of the infant the umbilical cord is immediately clamped and cut due to history of jaundice previous children. Infant is late on the mother's abdomen. Placenta spontaneously delivered intact. Estimated blood loss is about 1 50 mL. There are no lacerations and no repair. Infant and mother are stable delivery room. All counts correct 3. There are no complications.
--- NOTE | 2020-11-09 06:36 | P.PNOBGVD ---
Subjective - Subjective Patient reports: Reports appetite normal, Reports voiding normally, Reports pain well controlled, Reports ambulating normally : doing well Objective - Latest Vital Signs Latest vital signs: Vital Signs Temp Pulse Resp BP Pulse Ox 11/09/20 04:00 97.6 F 56 L 17 107/61 99 11/09/20 00:00 97.6 F 54 L 17 101/60 100 11/08/20 20:00 98.3 F 69 17 112/64 99 11/08/20 16:00 59 L 17 11/08/20 15:55 98.1 F 59 L 17 106/53 11/08/20 15:25 97.5 F L 62 18 111/58 11/08/20 14:55 99.1 F 64 16 108/55 11/08/20 14:40 98.3 F 16 11/08/20 14:25 98.3 F 70 16 118/57 11/08/20 14:10 98.7 F 66 16 108/58 11/08/20 13:55 99.5 F 66 18 113/54 Intake and Output 11/08/20 11/08/20 11/09/20 14:59 22:59 06:59 Intake Total 11.533 Balance 11.533 Intake: Intake, IV Titration 11.533 Amount Oxytocin 30 Units/500 ml 11.533 Ns 30 unit In Saline 1 500ml.bag @ Per Protocol IV .Q0M [facility] Rx#:[id number] Other: # Voids 1 1 4 - Exam Lungs: bilateral: normal Chest: Normal S1, Normal S2 Extremities: Present: normal Abdomen: Present: normal appearance, soft Uterus: Present: normal, firm Assessment and Plan Assessment: day #1. Patient is resting without complaints wishes to go home. Vital signs are stable she is afebrile. Uterus is firm nontender she's having normal lochia. Impression single normal course. Plan is to continue routine care discharge home later today. (1) Elective induction of labor planned Current Visit: No Status: Acute Code(s): AIX7662 - SNOMED Code(s): 330209192 (2) Varicose vein of leg Current Visit: No Status: Acute Code(s): I83.90 - ASYMPTOMATIC VARICOSE VEINS OF UNSPECIFIED LOWER EXTREMITY SNOMED Code(s): 20717321 (3) 39 weeks gestation of Current Visit: No Status: Acute Code(s): Z3A.39 - 39 WEEKS GESTATION OF SNOMED Code(s): 00275416 (4) Positive GBS test Current Visit: No Status: Acute Code(s): B95.1 - STREPTOCOCCUS, GROUP B, CAUSING DISEASES [facility] SNOMED Code(s): 371969954
--- NOTE | 2020-11-09 06:39 | P.DS ---
Providers Date of admission: 11/08/20 05:40 Expected date of discharge: 11/09/20 Attending physician: Rom Saeed Primary care physician: Stated None - Discharge Diagnosis(es) (1) Elective induction of labor planned Current Visit: No Status: Acute (2) Varicose vein of leg Current Visit: No Status: Acute (3) 39 weeks gestation of Current Visit: No Status: Acute (4) Positive GBS test Current Visit: No Status: Acute Hospital Course: Please see dictated H&P for intimate details of this patient's admission. Brief summary pleasant 30-year-old 5 para 4 female 39-2/7 weeks gestation admitted to labor and delivery for elective induction of labor. Patient undergoes uncomplicated induction of labor quickly goes on to have a vaginal delivery viable male infant. Please see dictated delivery note. day 1 patient is doing well wishes to go home. Patient's felt be stable for discharge home follow up with me in 6 weeks. Procedures: Induction of labor and normal vaginal delivery Patient Condition at Discharge: Good Plan - Discharge Summary New Discharge Prescriptions: New Ibuprofen [Motrin] 600 mg PO Q6HR PRN #30 tab PRN Reason: Pain No Action Vit No.124/Iron/Folic [ Vitamin Tablet] 1 tab PO DAILY Aspirin 81 mg PO DAILY Discharge Medication List Vit No.124/Iron/Folic [ Vitamin Tablet] 1 tab PO DAILY 08/10/14 [History] Aspirin 81 mg PO DAILY 11/08/20 [History] Ibuprofen [Motrin] 600 mg PO Q6HR PRN #30 tab 11/09/20 [Rx] Follow up Appointment(s)/Referral(s): Rom Saeed MD [STAFF PHYSICIAN] - 12/21/20 2:45 pm Patient Instructions/Handouts: Vaginal Delivery (DC) Activity/Diet/Wound Care/Special Instructions: No intercourse or anything per vagina for 6 weeks. Please call if any fever, chills, excessive vaginal bleeding, and/or abdominal pain. Discharge Disposition: HOME SELF-CARE
[2020-11-09 08:18] VITALS: TEMP 97.5
[2020-11-09 12:20] VITALS: BP 109/66; PULSE 57; RESP 16
== END 2020-11-09 15:45 | disposition home or self-care (01) | DRG 807 ==
LOC: 4FBP 05:40
PROVIDERS: ADMIT Obstetrics & Gynecology; ATTEND Obstetrics & Gynecology
PROC: 10907ZC Drainage of Amniotic Fluid, Therapeutic from Products of Conception, Via Natural or Artificial Opening (ICD-10-PCS; principal; 2020-11-08)
PROC: 3E033VJ Introduction of Other Hormone into Peripheral Vein, Percutaneous Approach (ICD-10-PCS; principal; 2020-11-08)
PROC: 10E0XZZ Delivery of Products of Conception, External Approach (ICD-10-PCS; principal; 2020-11-08)
DX: O99.824 Streptococcus B carrier state complicating childbirth (principal); Z37.0 Single live birth; O87.4 Varicose veins of lower extremity in the puerperium; Z3A.39 39 weeks gestation of pregnancy; Z83.3 Family history of diabetes mellitus
CPT/HCPCS: 85025; 86850; 86900; 86901

== ENCOUNTER 2023-01-23 03:14 | Inpatient (IN) | payer BC ==
[2023-01-23] MEDS ORDERED: OXYTOCIN 30 UNITS/500 ML NS 30 UNIT in SALINE 1 500ML.BAG IV SCH ×2 (03:24→08:15)
[2023-01-23] MEDS ORDERED: AMPICILLIN 2,000 MG in SODIUM CHLORIDE 0.9% 100 ML IVPB STA (03:24)
[2023-01-23] MEDS ORDERED: TRANEXAMIC 1,000 MG/100ML-NACL 1,000 MG in EMPTY BAG 1 BAG IV PRN (03:24)
[2023-01-23] MEDS ORDERED: METHYLERGONOVINE 0.2 MG/ML 1 ML AMP IM PRN (03:24)
[2023-01-23] MEDS ORDERED: OXYTOCIN 10 UNIT/ML 1 ML VIAL IM PRN (03:24)
[2023-01-23] MEDS ORDERED: LIDOCAINE 0.5% (PF) 5 MG/ML (50 ML SDV) SQ PRN (03:24)
[2023-01-23] MEDS ORDERED: miSOPROStoL 200 MCG TAB PO PRN (03:24)
[2023-01-23] MEDS ORDERED: TERBUTALINE 1 MG/ML VIAL SQ PRN (03:24)
[2023-01-23] MEDS ORDERED: CARBOPROST TROMETHAMINE 250 MCG/ML 1 ML AMP IM PRN (03:24)
[2023-01-23 03:48] LABS: Basophils % (A) 1 %; Eosinophils # (A) 0.1 k/uL (0-0.7); Eosinophils % (A) 2 %; HCT 36.9 % (34.0-46.0); HGB 12.6 gm/dL (11.4-16.0); Lymphocytes # (A) 2.4 k/uL (1.0-4.8); Lymphocytes % (A) 34 %; MCV 91.2 fL (80.0-100.0); Mean Platelet Volume 9.8; Monocytes # (A) 0.3 k/uL (0-1.0); Monocytes % (A) 4 %; Neutrophils # (A) 4.1 k/uL (1.3-7.7); Neutrophils % (A) 57 %; Platelet Count 173 k/uL (150-450); RBC 4.05 m/uL (3.80-5.40); RDW 14.6 % (11.5-15.5); WBC 7.1 k/uL (3.8-10.6)
[2023-01-23] MEDS: LACTATED RINGERS 1,000 ML IV SCH ×2 (04:13→05:25)
[2023-01-23] MEDS ORDERED: fentaNYL (PF) 50 MCG/ML 5 ML AMP ONE (05:31)
[2023-01-23] MEDS ORDERED: ROPIVACAINE 5 MG/ML 30 ML VIAL ONE (05:31)
[2023-01-23] MEDS ORDERED: SODIUM CHLORIDE 0.9% 250 ML BAG ONE (05:31)
--- NOTE | 2023-01-23 07:03 | P.HPOB ---
History of Present Illness H&P Date: 01/23/23 Chief Complaint: Contractions. This patient is a pleasant 32-year-old 6 para 5 female estimated date of confinement 01/30/2023 estimated gestational age 39 weeks who presented this morning with complaints of contractions. Patient was found to be in active labor. care is complicated by an elevated bilirubin that was done by her PCP in the first trimester. We did follow this and it did come down to normal and had no clinical significance. She also had an ultrasound done at 19 weeks that showed an HARDEEP of 7.1 by referred her to maternal- medicine and she had a normal level III ultrasound and consultation. is also complicated by severe peripheral varicosities she has seen vascular surgery for in the past and has been on a baby aspirin throughout the did not recommend any other anticoagulation. Review of Systems Genitourinary: Reports Menstruation: Reports amenorrhea Past Medical History Past Medical History: Vascular Disorder Additional Past Medical History / Comment(s): vericose veins History of Any Multi-Drug Resistant Organisms: None Reported Additional Past Surgical History / Comment(s): wisdom teeth Past Anesthesia/Blood Transfusion Reactions: No Reported Reaction Past Psychological History: No Psychological Hx Reported Smoking Status: Never smoker Past Alcohol Use History: None Reported Past Drug Use History: None Reported - Past Family History Father History Unknown: Yes Family Medical History: Diabetes Mellitus Medications and Allergies Home Medications Medication Instructions Recorded Confirmed Type Vit No.124/Iron/Folic 1 tab PO DAILY 08/10/14 01/23/23 History [ Vitamin Tablet] Aspirin 81 mg PO DAILY 11/08/20 01/23/23 History L.acidoph,Paracasei, B.lactis 1 tablet PO DAILY 01/23/23 01/23/23 History [Probiotic] Allergies Allergy/AdvReac Type Severity Reaction Status Date / Time No Known Allergies Allergy Verified 01/23/23 03:21 Exam Vital Signs Temp Pulse Resp BP Pulse Ox 01/23/23 03:20 97.9 F 93 16 133/67 100 Intake and Output 01/22/23 01/22/23 01/23/23 14:59 22:59 06:59 Other: # Voids 1 Weight 68.492 kg - OBG Physical Exam Abdomen: bowel sounds normal, no diffuse tenderness, no bruit present, no guarding noted, no hepatomegaly, no splenomegaly, no mass Vulva: both: normal (Bilateral varicosities) Vagina: normal moisture, no discharge Cervix: no lesion (Patient is complete 0 station), no discharge Uterus: enlarged Results blood work shows she is O positive, rubella immune, RPR nonreactive, hepatitis B and C negative, HIV is negative, Glucola was normal, group B strep was negative, most recent ultrasound showed baby 5 lbs. 9 oz. which is the 55th percentile. She does have a history of positive strep with previous . Result Diagrams: 01/23/23 03:24 Assessment and Plan Assessment: This is a pleasant 32-year-old 6 para 5 female 39-0/7 weeks gestation admitted to labor and delivery in active labor. Patient does have a negative group B strep culture but a history of positive therefore be treated prophylactically with antibiotics. This point we anticipate vaginal delivery. (1) Normal labor Current Visit: Yes Status: Acute Code(s): O80 - ENCOUNTER FOR FULL-TERM UNCOMPLICATED DELIVERY; Z37.9 - OUTCOME OF DELIVERY, UNSPECIFIED SNOMED Code(s): 06242082 (2) 39 weeks gestation of Current Visit: No Status: Acute Code(s): Z3A.39 - 39 WEEKS GESTATION OF SNOMED Code(s): 47187651 (3) Varicose vein of leg Current Visit: No Status: Acute Code(s): I83.90 - ASYMPTOMATIC VARICOSE VEINS OF UNSPECIFIED LOWER EXTREMITY SNOMED Code(s): 83464830
[2023-01-23] MEDS ORDERED: AMPICILLIN 1,000 MG in SODIUM CHLORIDE 0.9% 50 ML IVPB SCH (07:30)
[2023-01-23] MEDS ORDERED: diphenhydrAMINE 25 MG CAP PO PRN (08:12)
[2023-01-23] MEDS ORDERED: LANOLIN CREAM 5 GM TUBE TOPICAL PRN (08:12)
[2023-01-23] MEDS ORDERED: bisacodyL 10 MG SUPP RECTAL PRN (08:12)
[2023-01-23] MEDS ORDERED: SIMETHICONE 80 MG CHEWABLE PO PRN (08:12)
[2023-01-23] MEDS ORDERED: HYDROCORTISONE 2.5% RECTAL CREAM 30 GM TUBE RECTAL PRN (08:12)
[2023-01-23] MEDS ORDERED: BENZOCAINE/MENTHOL SPRAY 1 GM/SPRAY AEROSOL TOPICAL PRN (08:12)
[2023-01-23] MEDS ORDERED: ZOLPIDEM 5 MG TAB PO PRN (08:12)
[2023-01-23] MEDS ORDERED: diphenhydrAMINE 50 MG/ML 1 ML VIAL IVP PRN (08:12)
[2023-01-23] MEDS ORDERED: ACETAMINOPHEN TAB 325 MG TAB PO PRN (08:12)
--- NOTE | 2023-01-23 08:16 | P.PROBDLV ---
Vaginal Delivery Note - . Vaginal Delivery Note: Normal spontaneous vaginal delivery viable female infant Apgars 9 and 9 delivery time is 0725 hrs. Please see dictated H&P for intimate details of this patient's admission. In brief summary this is a pleasant 32-year-old 6 para 5 female 39-0/7 weeks gestation admitted to labor and delivery in active labor. Patient does get an epidural for pain control and quickly gets to complete. Patient pushes the head to the perineum posterior perineum is supported. We have controlled delivery of infant's head over the intact perineum. Mouth and nares are bulb suctioned. There is no evidence of a nuchal cord. With gentle downward traction we then have delivery the anterior and posterior shoulder and rest this 's body. This is a vigorous viable female Apgars 9 and 9 delivery time was 0725 hours. After delivery of the the umbilical cord is allowed to quit pulsing is then doubly clamped and cut. It appears to be trivascular. The placenta does take approximately 30 minutes but deliver spontaneously and intact. There are no lacerations requiring any repair. There are no complications. All counts are correct 3. Infant and mother stable delivery room.
[2023-01-23] MEDS: IBUPROFEN 600 MG TAB PO PRN ×2 (08:22→16:37)
[2023-01-23] MEDS ORDERED: SENNOSIDES-DOCUSATE SODIUM 1 EACH TAB PO SCH (20:00)
[2023-01-24 00:44] VITALS: RESP 16
--- NOTE | 2023-01-24 06:39 | P.PNOBGVD ---
Subjective - Subjective Patient reports: Reports appetite normal, Reports voiding normally, Reports pain well controlled, Reports ambulating normally : doing well Objective - Latest Vital Signs Latest vital signs: Vital Signs Temp Pulse Resp BP Pulse Ox 01/24/23 00:00 97.6 F 88 16 103/65 01/23/23 16:00 98.0 F 62 18 102/65 100 01/23/23 12:00 98.1 F 58 L 16 108/54 01/23/23 09:51 57 L 16 106/56 01/23/23 09:21 54 L 16 106/51 01/23/23 08:51 56 L 16 89/50 01/23/23 08:36 64 16 96/55 01/23/23 08:21 68 16 105/62 01/23/23 08:06 75 16 105/58 01/23/23 07:51 99 F 80 16 104/51 Intake and Output 01/23/23 01/23/23 01/24/23 14:59 22:59 06:59 Intake Total 167 Output Total 653 Balance -486 Intake: Intake, IV Titration 167 Amount Oxytocin 30 Units/500 ml 167 Ns 30 unit In Saline 1 500ml.bag @ Per Protocol IV .Q0M [facility] Rx#:[id number] Output: Estimated Blood Loss 400 Output, Quantitative 253 Blood Loss Other: Voiding Method Toilet # Voids 1 1 1 - Exam Lungs: bilateral: normal Chest: Normal S1, Normal S2 Extremities: Present: normal Abdomen: Present: normal appearance, soft Uterus: Present: normal, firm Assessment and Plan Assessment: day #1. Patient is resting without complaints and wishes to go home. Vital signs are stable she's afebrile. Uterus is firm nontender and she is having normal lochia. My impression this is a normal course. Plan is to check a CBC, continue routine care, discharge home later this day. (1) Normal labor Current Visit: Yes Status: Acute Code(s): O80 - ENCOUNTER FOR FULL-TERM UNCOMPLICATED DELIVERY; Z37.9 - OUTCOME OF DELIVERY, UNSPECIFIED SNOMED Code(s): 22271869 (2) 39 weeks gestation of Current Visit: No Status: Acute Code(s): Z3A.39 - 39 WEEKS GESTATION OF SNOMED Code(s): 74416644 (3) Varicose vein of leg Current Visit: No Status: Acute Code(s): I83.90 - ASYMPTOMATIC VARICOSE VEINS OF UNSPECIFIED LOWER EXTREMITY SNOMED Code(s): 22625160
--- NOTE | 2023-01-24 06:43 | P.DS ---
Providers Date of admission: 01/23/23 03:14 Expected date of discharge: 01/24/23 Attending physician: Rom Saeed Primary care physician: Judd Esposito MD - Discharge Diagnosis(es) (1) Normal labor Current Visit: Yes Status: Acute (2) 39 weeks gestation of Current Visit: No Status: Acute (3) Varicose vein of leg Current Visit: No Status: Acute Hospital Course: Please see dictated H&P of this patient's admission. In brief summary this is a pleasant 32-year-old 6 para 5 female estimated gestational age 39 weeks admitted to labor and delivery in active labor. Patient quickly goes on to have a vaginal delivery viable female . Please see dictated delivery note. day 1 patient's felt be stable for discharge home follow up with me in 6 weeks. Procedures: Normal spontaneous vaginal delivery Patient Condition at Discharge: Good Plan - Discharge Summary New Discharge Prescriptions: New Ibuprofen [Motrin] 600 mg PO Q6HR PRN #30 tab PRN Reason: Mild Pain (Scale 1 To 3) No Action Vit No.124/Iron/Folic [ Vitamin Tablet] 1 tab PO DAILY L.acidoph,Paracasei, B.lactis [Probiotic] 1 tablet PO DAILY Aspirin 81 mg PO DAILY Discharge Medication List Vit No.124/Iron/Folic [ Vitamin Tablet] 1 tab PO DAILY 08/10/14 [History] Aspirin 81 mg PO DAILY 11/08/20 [History] L.acidoph,Paracasei, B.lactis [Probiotic] 1 tablet PO DAILY 01/23/23 [History] Ibuprofen [Motrin] 600 mg PO Q6HR PRN #30 tab 01/24/23 [Rx] Follow up Appointment(s)/Referral(s): Rom Saeed MD [STAFF PHYSICIAN] - 03/07/23 9:45 am Patient Instructions/Handouts: Vaginal Delivery (DC) Activity/Diet/Wound Care/Special Instructions: No intercourse or anything per vagina for 6 weeks. Please call if any fever, chills, excessive vaginal bleeding, and/or abdominal pain. Please continue to take 81 mg of aspirin daily for 4-6 weeks Discharge Disposition: HOME SELF-CARE
[2023-01-24 07:38] LABS: Basophils % (A) 0 %; Eosinophils # (A) 0.1 k/uL (0-0.7); Eosinophils % (A) 2 %; HGB 11.8 gm/dL (11.4-16.0); Lymphocytes # (A) 2.2 k/uL (1.0-4.8); Lymphocytes % (A) 34 %; MCH 30.6 pg (25.0-35.0); MCHC 32.9 g/dL (31.0-37.0); MCV 93.1 fL (80.0-100.0); Mean Platelet Volume 10.4; Monocytes # (A) 0.3 k/uL (0-1.0); Monocytes % (A) 4 %; Neutrophils # (A) 3.7 k/uL (1.3-7.7); Neutrophils % (A) 57 %; Platelet Count 146 k/uL (150-450); RBC 3.86 m/uL (3.80-5.40); RDW 14.9 % (11.5-15.5); WBC 6.6 k/uL (3.8-10.6)
[2023-01-24 07:47] LABS: ALT 14 U/L (4-34); AST 33 U/L (14-36); African American GFR (CKD) >90 (>60 ml/min/1.73 sqM); Albumin 2.7 g/dL (3.5-5.0); Alkaline Phosphatase 154 U/L (38-126); Anion Gap 6 mmol/L; Blood Urea Nitrogen 8 mg/dL (7-17); Calcium 8.3 mg/dL (8.4-10.2); Carbon Dioxide 25 mmol/L (22-30); Chloride 105 mmol/L (98-107); Glucose 71 mg/dL (74-99); Non-African American GFR(CKD) >90 (>60 ml/min/1.73 sqM); Potassium 3.9 mmol/L (3.5-5.1); Sodium 136 mmol/L (137-145); Total Bilirubin 0.8 mg/dL (0.2-1.3); Total Protein 5.4 g/dL (6.3-8.2)
[2023-01-24 09:47] VITALS: BP 105/76; PULSE 76; TEMP 97.8
== END 2023-01-24 09:59 | disposition home or self-care (01) | DRG 807 ==
LOC: 4FBP 03:14
PROVIDERS: ADMIT Obstetrics & Gynecology; ATTEND Obstetrics & Gynecology
PROC: 10E0XZZ Delivery of Products of Conception, External Approach (ICD-10-PCS; principal; 2023-01-23)
DX: O87.4 Varicose veins of lower extremity in the puerperium (principal); O99.824 Streptococcus B carrier state complicating childbirth; I83.90 Asymptomatic varicose veins of unspecified lower extremity; Z28.310 Unvaccinated for COVID-19; Z79.82 Long term (current) use of aspirin; Z3A.39 39 weeks gestation of pregnancy; Z79.899 Other long term (current) drug therapy; Z37.0 Single live birth
CPT/HCPCS: 80053; 85025; 86850; 86900; 86901